=== PATIENT | female | born 1940 | race Caucasian/White ===

== ENCOUNTER 2016-06-22 10:06 | Emergency (ER) | payer BC, MEDICARE ==
[~2016-06-22] VITALS: Ht 165.1 cm; Wt 85.0 kg
[~2016-06-22 10:06] MED LIST: BUDE0.25 NEB; COUM5TAB PO; COUM7.5T PO; CRAN500C2; DOFE125 PO; FORM20NE INH; FURO1TAB60 PO; LISI10TA3 PO; MECL-62 PO; METF500T PO; MONT10TA2 PO; MULTTAB67 PO; PARO20TA2 PO; POTA10CA PO; PRAV40TA2 PO; PRIM50TA5 PO; PROT40TA PO; XOPEAER4 INH
[2016-06-22 10:09] VITALS: BP 192/78; PULSE 77; RESP 19; TEMP 98.1; O2SAT 98
[2016-06-22 10:11] VITALS: BP 192/78; PULSE 73
[2016-06-22] MEDS ORDERED: SODIUM CHLOR 0.9% 1000 ML INJ 1,000 ML IV ONE (10:37)
--- NOTE | 2016-06-22 10:41 | PD ---
HPI Chief Complaint: Chest Pain Time Seen by Provider: 10:18 Travel History International Travel<30 days: No Contact w/Intl Traveler<30days: No Traveled to known affect area: No History of Present Illness HPI The patient is a 76-year-old female who presents emergency department for vertigo. The patient states she developed dizziness earlier today while at home. Patient describes her dizziness as the room spinning, presyncope, associated with mild nausea. 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 However, the patient states she did not lie on her right side last night, however, still developed vertigo. The vertigo is worse with positional changes and is slightly alleviated at rest. She's had symptoms similar to this multiple times in the past secondary to vertigo. Incidentally she notes a history of atrial fibrillation and underwent cardiac ablation in March [address] Figueroa. The patient was maintained on her Coumadin and Tikosyn, however, was taken off the Lanoxin and Cardizem. The patient states she received a phone call yesterday, afterward a 24-hour monitor, and her ribbon weaver advised her that she was having intermittent atrial fibrillation. She made an appointment to see her ribbon weaver, Dr. Leo, next Monday. The patient is concerned that she may need to go back on her medications for rate control. The patient denies any current chest pain or shortness of breath. PFSH Past Medical History Arthritis: Yes Asthma: Yes Atrial Fibrillation: Yes Heart Rhythm Problems: Yes Cancer: Yes (lymphoma) Cardiac Catheterization: Yes Cardiovascular Problems: Yes High Cholesterol: Yes Chest Pain: Yes Diabetes: Yes Patient Takes Glucophage: Yes (06/21/16 IN THE PM) Gastrointestinal Disorders: No GERD: Yes Glaucoma: No Hepatitis: No Hiatal Hernia: Yes Hypertension: Yes Respiratory: Yes Integumentary: No Thyroid Disease: No Influenza Vaccination: Yes Past Surgical History Appendectomy: Yes Cardiac Surgery: Yes (TWO ABLATIONS) Genitourinary Surgery: Yes (BILATERAL HERNIA) Gynecologic Surgery: Yes (HYSTERECTOMOY) Thoracic Surgery: No Other Surgery: Yes Social History Alcohol Use: No Tobacco Use: No Substance Use: No Allergies-Medications (Allergen,Severity, Reaction): Coded Allergies: No Known Allergies (Unverified , 12/12/16) Reported Meds & Prescriptions Reported Meds & Active Scripts Active Reported Xopenex Hfa 15 GM Inh (Levalbuterol 15 GM Inh) 45 Mcg/Act Aer 45 Mcg INH Q6HR Shake well before using. (1 puff = 45 mcg) Tikosyn (Dofetilide) 125 Mcg Cap 125 Mcg PO BID For Creatinine Clearance 20-39 mL/min Singulair (Montelukast Sodium) 10 Mg Tab 10 Mg PO HS Protonix (Pantoprazole Sodium) 40 Mg Tab 40 Mg PO DAILY Primidone 50 Mg Tab 50 Mg PO BID Pravastatin 40 Mg Tab 40 Mg PO DAILY Potassium Chloride ER (Potassium Chloride) 10 Meq Cap 10 Meq PO DAILY Perforomist Neb (Formoterol Fumarate) 20 Mcg/2 Ml Neb 1 Nebule INH BID Paroxetine (Paroxetine HCl) 20 Mg Tab 20 Mg PO DAILY Multiple Vitamin 1 Tab 1 Tab PO DAILY Metformin (Metformin HCl) 500 Mg Tab 500 Mg PO DAILY With a meal Meclizine (Meclizine HCl) 25 Mg Tab 25 Mg PO DIRECTED PRN Lisinopril 10 Mg Tab 10 Mg PO DAILY Lasix (Furosemide) 40 Mg Tab 40 Mg PO DAILY Cranberry (Cranberry (Vaccinium Macrocarpon)) 500 Mg Cap Coumadin (Warfarin) 7.5 Mg Tab 7.5 Mg PO EVERY OTHER DAY Coumadin (Warfarin) 5 Mg Tab 5 Mg PO 3 DAYS A WEEK Budesonide Neb 0.25 Mg/2 Ml Neb 0.25 Mg NEB Q12HR NEB Review of Systems Except as stated in HPI: all other systems reviewed are Neg General / Constitutional: No: Fever HENT: Positive: Vertigo, Lightheadedness Cardiovascular: Positive: Irregular Rhythm, No: Chest Pain or Discomfort, Diaphoresis Respiratory: No: Shortness of Breath Gastrointestinal: Positive: Nausea, No: Vomiting, Abdominal Pain Musculoskeletal: No: Weakness Neurologic: Positive: Dizziness Physical Exam Narrative GENERAL: Awake, alert, pleasant 76-year-old female who appears her stated age and is in no acute respiratory distress. SKIN: Warm and dry. HEAD: Atraumatic. Normocephalic. EYES: Pupils equal and round. No scleral icterus. No injection or drainage. ENT: No nasal bleeding or discharge. Mucous membranes pink and moist. NECK: Trachea midline. No JVD. CARDIOVASCULAR: Regular rate and rhythm. Holosystolic murmur. Heart rate in the 70s. RESPIRATORY: No accessory muscle use. Clear to auscultation. Breath sounds equal bilaterally. GASTROINTESTINAL: Abdomen soft, non-tender, nondistended. No rebound tenderness. MUSCULOSKELETAL: No obvious deformities. No clubbing. No cyanosis. No edema. NEUROLOGICAL: Awake and alert. No obvious cranial nerve deficits. Motor grossly within normal limits. Normal speech. PSYCHIATRIC: Appropriate mood and affect; insight and judgment normal. Data Data Last Documented VS Vital Signs Date Time Temp Pulse Resp B/P Pulse Ox O2 Delivery O2 Flow Rate FiO2 06/22/16 10:11 73 192/78 06/22/16 10:11 18 98 Nasal Cannula 2 06/22/16 10:09 98.1 Orders Complete Blood Count With Diff (06/22/16 10:37) Comprehensive Metabolic Panel (06/22/16 10:37) Magnesium (Mg) (06/22/16 10:37) Ckmb (Isoenzyme) Profile (06/22/16 10:37) Troponin I (06/22/16 10:37) Act Partial Throm Time (Ptt) (06/22/16 10:37) Prothrombin Time / Inr (Pt) (06/22/16 10:37) Ecg Monitoring (06/22/16 10:37) Iv Access Insert/Monitor (06/22/16 10:37) Oximetry (06/22/16 10:37) Meclizine (Antivert) (06/22/16 10:45) Ondansetron Inj (Zofran Inj) (06/22/16 10:45) Sodium Chloride 0.9% Flush (Ns Flush) (06/22/16 10:45) Sodium Chlor 0.9% 1000 Ml Inj (Ns 1000 M (06/22/16 10:37) Orthostatic Vital Signs (06/22/16 10:37) Diazepam (Valium) (06/22/16 10:45) Diltiazem Cd (Cardizem Cd) (06/22/16 12:30) Labs Laboratory Tests Test 06/22/16 10:40 White Blood Count 4.0 TH/MM3 Red Blood Count 4.27 MIL/MM3 Hemoglobin 12.5 GM/DL Hematocrit 37.4 % Mean Corpuscular Volume 87.6 FL Mean Corpuscular Hemoglobin 29.3 PG Mean Corpuscular Hemoglobin 33.4 % Concent Red Cell Distribution Width 13.8 % Platelet Count 235 TH/MM3 Mean Platelet Volume 8.7 FL Neutrophils (%) (Auto) 60.3 % Lymphocytes (%) (Auto) 26.9 % Monocytes (%) (Auto) 9.9 % Eosinophils (%) (Auto) 2.5 % Basophils (%) (Auto) 0.4 % Neutrophils # (Auto) 2.4 TH/MM3 Lymphocytes # (Auto) 1.1 TH/MM3 Monocytes # (Auto) 0.4 TH/MM3 Eosinophils # (Auto) 0.1 TH/MM3 Basophils # (Auto) 0.0 TH/MM3 CBC Comment DIFF FINAL Differential Comment Prothrombin Time 27.1 SEC Prothromb Time International 2.4 RATIO Ratio Activated Partial 36.2 SEC Thromboplast Time Sodium Level 141 MEQ/L Potassium Level 4.0 MEQ/L Chloride Level 101 MEQ/L Carbon Dioxide Level 31.9 MEQ/L Anion Gap 8 MEQ/L Blood Urea Nitrogen 18 MG/DL Creatinine 0.71 MG/DL Estimat Glomerular Filtration 80 ML/MIN Rate Random Glucose 98 MG/DL Calcium Level 9.0 MG/DL Magnesium Level 2.1 MG/DL Total Bilirubin 0.3 MG/DL Aspartate Amino Transf 17 U/L (AST/SGOT) Alanine Aminotransferase 23 U/L (ALT/SGPT) Alkaline Phosphatase 66 U/L Total Creatine Kinase 44 U/L Troponin I LESS THAN 0.02 NG/ML Total Protein 7.1 GM/DL Albumin 3.7 GM/DL [facility] Medical Decision Making Medical Screen Exam Complete: Yes Emergency Medical Condition: Yes Medical Record Reviewed: Yes Interpretation(s) Laboratory Tests Test 06/22/16 10:40 White Blood Count 4.0 TH/MM3 Red Blood Count 4.27 MIL/MM3 Hemoglobin 12.5 GM/DL Hematocrit 37.4 % Mean Corpuscular Volume 87.6 FL Mean Corpuscular Hemoglobin 29.3 PG Mean Corpuscular Hemoglobin 33.4 % Concent Red Cell Distribution Width 13.8 % Platelet Count 235 TH/MM3 Mean Platelet Volume 8.7 FL Neutrophils (%) (Auto) 60.3 % Lymphocytes (%) (Auto) 26.9 % Monocytes (%) (Auto) 9.9 % Eosinophils (%) (Auto) 2.5 % Basophils (%) (Auto) 0.4 % Neutrophils # (Auto) 2.4 TH/MM3 Lymphocytes # (Auto) 1.1 TH/MM3 Monocytes # (Auto) 0.4 TH/MM3 Eosinophils # (Auto) 0.1 TH/MM3 Basophils # (Auto) 0.0 TH/MM3 CBC Comment DIFF FINAL Differential Comment Prothrombin Time 27.1 SEC Prothromb Time International 2.4 RATIO Ratio Activated Partial 36.2 SEC Thromboplast Time Sodium Level 141 MEQ/L Potassium Level 4.0 MEQ/L Chloride Level 101 MEQ/L Carbon Dioxide Level 31.9 MEQ/L Anion Gap 8 MEQ/L Blood Urea Nitrogen 18 MG/DL Creatinine 0.71 MG/DL Estimat Glomerular Filtration 80 ML/MIN Rate Random Glucose 98 MG/DL Calcium Level 9.0 MG/DL Magnesium Level 2.1 MG/DL Total Bilirubin 0.3 MG/DL Aspartate Amino Transf 17 U/L (AST/SGOT) Alanine Aminotransferase 23 U/L (ALT/SGPT) Alkaline Phosphatase 66 U/L Total Creatine Kinase 44 U/L Troponin I LESS THAN 0.02 NG/ML Total Protein 7.1 GM/DL Albumin 3.7 GM/DL Differential Diagnosis Differential diagnosis includes vertigo, labyrinthitis, Mnire's disease, intracranial hemorrhage, atrial fibrillation with RVR, arrhythmia, left slight abnormality. Narrative Course IV was established, labs are drawn and sent, and the patient was placed on cardiac telemetry monitoring and continuous pulse oximetry monitoring. EKG was ordered and interpreted. The patient was in a normal sinus rhythm, however, on monitoring she appeared to have paroxysmal runs of atrial fibrillation and sinus arrhythmia. The patient states she was dizzy earlier today, when it started, her heart rate was in the 70s. She has no evidence of atrial fibrillation with RVR, I believe her vertigo is most likely related to benign positional vertigo as she has a history of similar symptoms. Patient was monitored on telemetry monitoring to evaluate for any runs of A. fib with RVR. Electrolytes were sent to lab. INR was sent to lab. The patient was administered meclizine and Valium for her vertigo. Orthostatic vital signs were obtained. The patient's vertigo resolved when at rest. The patient did have intermittent episodes of atrial fibrillation with a rate that varied between 60 and 140. The patient's vertigo/dizziness did not appear to be attributed to the paroxysmal A. fib. The patient's INR is therapeutic. Electrolytes are unremarkable. As the patient does have paroxysmal A. fib, the patient's ribbon weaver, Dr. Leo, was paged at 11:50 AM. The patient's primary physician is Dr. Reinaldo Taylor. I discussed the patient with Dr. Leo who recommends Cardizem 120 mg long-acting once a day until she is seen by him in the office next week. The patient agrees and understands. Diagnosis Primary Impression: Paroxysmal atrial fibrillation with rapid ventricular response Additional Impression: Vertigo Patient Instructions: General Instructions Additional Instructions: Medications as directed. Follow-up with her ribbon weaver as scheduled. No driving while symptomatic. Return if symptoms worsen or progress. Med/Other Pt SpecificInfo: Prescription(s) given Scripts Diltiazem CD 24 HR (Cardizem CD 24 HR)120 Mg Sepgz300 Mg PO DAILY #10 CAP Ref 0 Prov:João Dominguez MD 06/22/16 Disposition: 01 DISCHARGE HOME Condition: Stable João Dominguez MD Jun 22, 2016 10:41
[2016-06-22] MEDS ORDERED: ONDANSETRON HCL 4 MG/2 ML VIAL IVP ONE (10:45)
[2016-06-22] MEDS ORDERED: DIAZEPAM 5 MG TAB PO ONE (10:45)
[2016-06-22] MEDS ORDERED: MECLIZINE HCL 25 MG TAB PO ONE (10:45)
[2016-06-22 11:02] LABS: AUTOMATED NEUTROPHIL # 2.4 TH/MM3 (1.8-7.7); BASOPHIL % 0.4 % (0.0-2.0); EOSINOPHIL # 0.1 TH/MM3 (0-0.4); EOSINOPHIL % 2.5 % (0.0-4.0); HEMATOCRIT 37.4 % (35.0-46.0); HEMO FLAGS DIFF FINAL; LYMPH % 26.9 % (9.0-44.0); LYMPHOCYTE # 1.1 TH/MM3 (1.0-4.8); MEAN CELL VOLUME 87.6 FL (80.0-100.0); MEAN CORPUSCULAR HEMOGLOBIN 29.3 PG (27.0-34.0); MEAN CORPUSCULAR HGB CONC 33.4 % (32.0-36.0); MONO % 9.9 % (0.0-8.0); NEUT % 60.3 % (16.0-70.0); PLATELET COUNT 235 TH/MM3 (150-450); RED BLOOD COUNT 4.27 MIL/MM3 (4.00-5.30); RED CELL DISTRIBUTION WIDTH 13.8 % (11.6-17.2)
[2016-06-22] MEDS: SODIUM CHLORIDE 0.9% FLUSH 5 ML FLUSH IVF PRN ×2 (11:08→11:16)
[2016-06-22 11:11] LABS: APTT (PATIENT) 36.2 SEC (24.3-30.1); INTERNATIONAL NORMALIZED RATIO 2.4 RATIO; PROTHROMBIN TIME - PATIENT 27.1 SEC (9.8-11.6)
[2016-06-22 11:22] LABS: ANION GAP 8 MEQ/L (5-15); AST (GOT) 17 U/L (15-37); BICARBONATE 31.9 MEQ/L (21.0-32.0); BLOOD UREA NITROGEN 18 MG/DL (7-18); CHLORIDE 101 MEQ/L (98-107); GLOMERULAR FILTRATION RATE 80 ML/MIN (>89); MAGNESIUM 2.1 MG/DL (1.5-2.5); SODIUM (NA) 141 MEQ/L (136-145)
[2016-06-22 11:27] LABS: ALKALINE PHOSPHATASE 66 U/L (45-117); ALT (GPT) 23 U/L (10-53); TOTAL BILIRUBIN ADULT 0.3 MG/DL (0.2-1.0)
[2016-06-22 11:33] LABS: CREATINE KINASE 44 U/L (26-192)
[2016-06-22 12:28] VITALS: BP_SYST 138; BP_SYST 142; BP_SYST 147; BP_DIAS 58; BP_DIAS 65; BP_DIAS 72; O2SAT 100
[2016-06-22] MEDS ORDERED: DILTIAZEM-CD 120 MG CAP ER PO ONE (12:30)
[2016-06-22] MEDS ORDERED: CARD120C4 PO (12:33)
--- NOTE | 2016-06-23 14:12 | EKG ---
Date Performed: 06/22/2016 Time Performed: 10:09:57 PTAGE: 76 years EKG: Sinus rhythm INCOMPLETE RIGHT BUNDLE BRANCH BLOCK BORDERLINE ECG INTERPRETATION BASED ON A DEFAULT AGE OF 40 YEAR S PREVIOUS TRACING : 03/22/2016 04.54 DOCTOR: Raman Cortes Interpretating Date/Time 06/23/2016 14:02:13
== END 2016-06-22 13:21 | disposition home or self-care (01) ==
LOC: NEPE 10:06
DX: I48.0 Paroxysmal atrial fibrillation (principal); R42 Dizziness and giddiness; M19.90 Unspecified osteoarthritis, unspecified site; J45.909 Unspecified asthma, uncomplicated; E78.00 Pure hypercholesterolemia, unspecified; E11.9 Type 2 diabetes mellitus without complications; I10 Essential (primary) hypertension; Z79.4 Long term (current) use of insulin
CPT/HCPCS: 80053; 82550; 83735; 84484; 85025; 85610; 85730; 93005; 96361; 96374; 99284; J2405; J7030